=== PATIENT | female | born 1980 | race Hispanic/Latino ===

== ENCOUNTER 2019-10-07 09:33 | Inpatient (IN) | payer BC, SELFPAY ==
[2019-10-07] MEDS ORDERED: Lidocaine 2% MPF 10 ML AMP (For Epidural Use) ONE (09:34)
[2019-10-07] MEDS ORDERED: Bupivacaine 0.25% HCL 30 ML VIAL ONE (09:34)
[2019-10-07 10:33] VITALS: BMI 31.7
[2019-10-07] MEDS ORDERED: hydrALAZINE 20 MG/ML VIAL ONE (10:46)
[2019-10-07 11:06] LABS: Hemoglobin 13.3 g/dL (12.0-16.0); Mean Corpuscular HGB CONC 32.8 g/dL (32.0-36.0); Mean Corpuscular Hemoglobin 29.2 pg (27.0-31.0); Mean Corpuscular Volume 89.1 fL (78.0-98.0); Mean Platelet Volume 8.2 fL (7.4-10.4); Platelet Count 297 thou/uL (130-400); RBC Distribution Width 12.7 % (11.5-14.5); Red Blood Cell (RBC) Count 4.54 mill/uL (4.20-5.40); White Blood Cell (WBC) Count 9.2 thou/uL (4.8-10.8)
[2019-10-07 11:10] LABS: Hemoglobin A1c 6.8 % (4.0-6.0)
[2019-10-07 11:20] LABS: ALT (SGPT) 27 U/L (8-55); AST (SGOT) 21 U/L (5-34); Albumin 3.2 g/dL (3.5-5.0); Alkaline Phosphatase 179 U/L (40-110); Anion Gap 14 mmol/L (10-20); BUN (Urea Nitrogen) 15 mg/dL (7.0-18.7); Bilirubin, Total 0.2 mg/dL (0.2-1.2); Calc. Creatinine Clearance 125 mL/min (70-130); Calcium 10.2 mg/dL (7.8-10.44); Carbon Dioxide 19 mmol/L (22-29); Chloride 106 mmol/L (98-107); Estimated GFR-MDRD Greater than 90; Glucose 108 mg/dL (70-105); Potassium 4.3 mmol/L (3.5-5.1); Protein, Total 7.2 g/dL (6.0-8.3); Sodium 135 mmol/L (136-145)
[2019-10-07] MEDS ORDERED: FLU VACC QS2019-20(6MOS UP)/PF 60 MCG/0.5 ML SYRINGE IM ONE (11:30)
--- NOTE | 2019-10-07 11:40 | ULT ---
Limited Obstetrical Ultrasound INDICATION: Hypertension and diabetes TECHNIQUE: Grayscale, M-mode Doppler, color Doppler and spectral Doppler images were obtained. Humain dafne is focused on the clinical indication. COMPARISON: No relevant prior studies available. FINDINGS: GESTATION: Number of gestations: Single. Presentation: Cephalic. heart rate: 150 bpm. Placental location: Anterior MAEVE: 11.9 cm. Biophysical profile: tone: 2 out of 2. breathin out of 2 movements: 2 out of 2 Amniotic fluid level: 2 out of 2 Umbilical artery spectral Doppler imaging: There is persistent diastolic flow. The systolic diastolic ratio at the placenta was 1.89, at mid cord 2.84 and at the insertion 3.0. IMPRESSION: 1. Biophysical profile of 8 out of 8. 2. Umbilical artery spectral Doppler demonstrated persistent diastolic flow with systolic diastolic r atios between 50th and 95th percentile for gestational age. 3. MAEVE: 11.9 cm
[2019-10-07] MEDS: Betamet Acet/Betamet Na Ph 30 MG/5 ML VIAL ONE ×2 (11:57→11:58)
[2019-10-07] MEDS ORDERED: Lactated Ringer's 1,000 ML IV SCH (12:15)
[2019-10-07] MEDS ORDERED: HYDROcodone/Acetaminophen 5/325 mg Tablet PO PRN (13:42)
[2019-10-07] MEDS ORDERED: Carboprost 250 MCG/ML AMP IM PRN (13:42)
[2019-10-07] MEDS ORDERED: Misoprostol 200 MCG TAB PR PRN (13:42)
[2019-10-07] MEDS ORDERED: Ondansetron PF 4 MG/2 ML Vial IVP PRN (13:42)
[2019-10-07] MEDS ORDERED: Lidocaine 1% (PF) 30 ML VIAL SC PRN (13:42)
[2019-10-07] MEDS ORDERED: Diphenoxylate HCl/Atropine Tablet PO PRN (13:42)
[2019-10-07] MEDS ORDERED: Butorphanol Tartrate 1 MG/ML VIAL SLOW IVP PRN (13:42)
[2019-10-07] MEDS ORDERED: hydrALAZINE 20 MG/ML VIAL SLOW IVP PRN (13:42)
[2019-10-07] MEDS ORDERED: Promethazine HCl 25 MG/ML VIAL IM PRN (13:42)
[2019-10-07] MEDS ORDERED: NS w/ Oxytocin 10 units 500 ML IV SCH (13:45)
[2019-10-07] MEDS ORDERED: Labetalol HCl 100 MG/20 ML VIAL ONE (13:45)
[2019-10-07] MEDS: Lactated Ringer's 1,000 ML IV SCH (14:21)
[2019-10-07 15:06] LABS: Syphilis Antibody Nonreactive (Nonreactive); Syphilis Antibody Index 0.03 S/CO (<1.00 Non-Reactive)
[2019-10-07] MEDS: Misoprostol 100 MCG TAB PO SCH (15:22)
[2019-10-07 16:16] LABS: HBSAg Index 5244.85 S/CO (0-0.99)
[2019-10-07 16:17] LABS: Hep B Surf Ag Reflx Confirmation S/CO (NonReactive)
[2019-10-07] MEDS: hydrALAZINE 20 MG/ML VIAL SLOW IVP PRN (19:45)
[2019-10-08] MEDS: Misoprostol 100 MCG TAB PO SCH
[2019-10-08] MEDS ORDERED: HumaLOG 300 UNITS/3 ML VIAL SC SCH ×2 (00:15→19:30)
[2019-10-08] MEDS: Lactated Ringer's 1,000 ML IV SCH ×2 (06:13→09:37)
[2019-10-08] MEDS: hydrALAZINE 20 MG/ML VIAL SLOW IVP PRN ×2 (06:22→10:29)
[2019-10-08] MEDS ORDERED: Magnesium Sulfate 20 gm/500 ml 20 GM/500 ML BAG ONE (08:12)
[2019-10-08] MEDS ORDERED: Fentanyl 4 mcg/Bup 0.1% Cadd 100 ML ONE (08:12)
[2019-10-08] MEDS ORDERED: Calcium Gluc 4.6 MEQ/10 ML (100 MG/ML) SLOW IVP PRN (08:16)
[2019-10-08] MEDS ORDERED: Magnesium Sulfate 20 GM/WATER 500 ML BAG IVPB SCH (08:30)
[2019-10-08] MEDS: Magnesium Sulfate 20 gm/500 ml 20 GM/500 ML BAG IVPB SCH ×2 (09:01→18:52)
[2019-10-08] MEDS ORDERED: Ondansetron PF 4 MG/2 ML Vial IVP PRN ×2 (09:51→20:22)
[2019-10-08] MEDS ORDERED: diphenhydrAMINE 50 MG/ML VIAL IVP PRN (09:51)
[2019-10-08] MEDS ORDERED: Acetaminophen 325 MG TAB PO PRN (09:51)
[2019-10-08] MEDS ORDERED: Promethazine HCl 25 MG/ML VIAL IM PRN ×2 (09:51→20:22)
[2019-10-08] MEDS ORDERED: Lactated Ringer's 500 ML IV PRN (09:51)
[2019-10-08] MEDS ORDERED: EPHEDRINE 25 MG/5 ML SYRINGE SLOW IVP PRN (09:51)
[2019-10-08] MEDS ORDERED: Naloxone HCl 0.4 mg/ml Vial IVP PRN ×2 (09:51)
[2019-10-08] MEDS ORDERED: Communication Order-Pharmacy FS SCH (10:00)
[2019-10-08] MEDS ORDERED: Fentanyl 4 mcg/Bupivacaine 0.1% Cassette 100 ML EPIDURAL SCH (10:00)
[2019-10-08] MEDS: NS w/ Oxytocin 10 units 500 ML IV SCH (12:30)
[2019-10-08] MEDS ORDERED: Penicillin G Potassium 5 MILL.UNITS VIAL ONE (13:25)
[2019-10-08] MEDS: Betamet Acet/Betamet Na Ph 30 MG/5 ML VIAL IM SCH (13:34)
[2019-10-08] MEDS ORDERED: Lidocaine 1% (PF) 30 ML VIAL ONE (13:51)
[2019-10-08] MEDS ORDERED: Labetalol HCl 100 MG/20 ML VIAL ONE (14:09)
[2019-10-08] MEDS ORDERED: Labetalol HCl 100 MG/20 ML VIAL SLOW IVP PRN (14:11)
[2019-10-08] MEDS ORDERED: Labetalol HCl 100 MG/20 ML VIAL SLOW IVP SCH (14:15)
[2019-10-08 15:14] LABS: Hep B Surface AG-Rflx Sendout Confirm. indicated (Negative)
[2019-10-08] MEDS: NS / Oxytocin 40 units/1000ml 1,000 ML IV PRN ×2 (15:15→18:52)
[2019-10-08 15:24] LABS: Actual Bicarbonate (HCO3a) 18.7 mEq/L (22-28); Base Excess (BEa) -12.8 mEq/L (-2.0 to +3.0)
[2019-10-08 15:27] LABS: Actual Bicarbonate (HCO3v) 15 mEq/L (22-28)
[2019-10-08 15:29] LABS: pH (Cord, venous) 7.18 (7.32-7.43)
[2019-10-08] MEDS ORDERED: Fentanyl 100 MCG/2 ML VIAL ONE (15:43)
[2019-10-08] MEDS ORDERED: Midazolam HCl 2 mg/2 ml Vial ONE (15:43)
[2019-10-08] MEDS ORDERED: hydrALAZINE 20 MG/ML VIAL ONE (17:08)
[2019-10-08] MEDS ORDERED: Preparation H Ointment 28 GM TUBE PR PRN (20:22)
[2019-10-08] MEDS ORDERED: Lanolin Ointment 7 GM TUBE TOP PRN (20:22)
[2019-10-08] MEDS ORDERED: Bisacodyl 10 MG SUPP PR PRN (20:22)
[2019-10-08] MEDS ORDERED: Magnesium Sulfate 20 gm/500 ml 20 GM/500 ML BAG IVPB SCH (20:22)
[2019-10-08] MEDS ORDERED: hydrALAZINE 20 MG/ML VIAL SLOW IVP PRN (20:22)
[2019-10-08] MEDS ORDERED: NS / Oxytocin 40 units/1000ml 1,000 ML IV SCH (20:22)
[2019-10-08] MEDS ORDERED: Calcium Gluconate 4.6 MEQ in Sodium Chloride 0.9% 100 ML IVPB PRN (20:22)
[2019-10-08] MEDS ORDERED: diphenhydrAMINE 25 MG CAP PO PRN (20:22)
[2019-10-08] MEDS ORDERED: Adacel (T-DAP) 0.5 ML SYRINGE IM ONE (20:22)
[2019-10-08] MEDS ORDERED: Milk Of Magnesia 30 ML UDCUP PO PRN (20:22)
[2019-10-08] MEDS ORDERED: HYDROcodone/Acetaminophen 5/325 mg Tablet PO PRN (20:22)
[2019-10-08 21:43] LABS: Hemoglobin 10.4 g/dL (12.0-16.0); Mean Corpuscular HGB CONC 33.9 g/dL (32.0-36.0); Mean Corpuscular Hemoglobin 30.3 pg (27.0-31.0); Mean Corpuscular Volume 89.4 fL (78.0-98.0); Mean Platelet Volume 8.1 fL (7.4-10.4); Platelet Count 278 thou/uL (130-400); RBC Distribution Width 12.8 % (11.5-14.5); Red Blood Cell (RBC) Count 3.43 mill/uL (4.20-5.40); White Blood Cell (WBC) Count 26.8 thou/uL (4.8-10.8)
[2019-10-08] MEDS: HYDROcodone/Acetaminophen 5/325 mg Tablet PO PRN (22:31)
[2019-10-09] MEDS: Docusate Calcium (SURFAK) 240 MG CAP PO SCH ×3 (09:37→21:15)
[2019-10-09] MEDS: Ferrous Sulfate 325 MG TAB PO SCH ×2 (09:37→17:15)
[2019-10-09 09:44] LABS: Hemoglobin 8.9 g/dL (12.0-16.0); Mean Corpuscular HGB CONC 33.1 g/dL (32.0-36.0); Mean Corpuscular Hemoglobin 29.3 pg (27.0-31.0); Mean Corpuscular Volume 88.5 fL (78.0-98.0); Mean Platelet Volume 7.7 fL (7.4-10.4); Platelet Count 249 thou/uL (130-400); RBC Distribution Width 12.9 % (11.5-14.5); Red Blood Cell (RBC) Count 3.05 mill/uL (4.20-5.40); White Blood Cell (WBC) Count 23.8 thou/uL (4.8-10.8)
[2019-10-09] MEDS: Prenatal Vitamin 1 TAB PO SCH (10:57)
[2019-10-09] MEDS ORDERED: HumaLOG 300 UNITS/3 ML VIAL SC SCH (11:00)
[2019-10-09] MEDS: Acetaminophen 500 MG TAB PO PRN ×2 (11:45→23:01)
[2019-10-09] MEDS ORDERED: Lisinopril/Hydrochlorothiazide 20 mg/12.5 mg Tablet PO SCH (14:45)
[2019-10-09] MEDS ORDERED: Dextrose 50% Abboject 50 ML SYRINGE SLOW IVP PRN (15:17)
[2019-10-09] MEDS ORDERED: Dextrose 5% in Water 1,000 ML IV PRN (15:17)
[2019-10-09] MEDS: Betamet Acet/Betamet Na Ph 30 MG/5 ML VIAL IM SCH (17:56)
[2019-10-09] MEDS: Misoprostol 100 MCG TAB PO SCH ×3 (18:35→18:38)
[2019-10-09] MEDS: NS w/ Oxytocin 10 units 500 ML IV SCH (18:36)
[2019-10-09] MEDS: Lactated Ringer's 1,000 ML IV SCH (18:36)
[2019-10-09] MEDS: HumaLOG 300 UNITS/3 ML VIAL SC SCH (18:41)
[2019-10-09] MEDS: Insulin Glargine 15 UNITS in Pre-Filled Syringe 1 EACH SC SCH (21:12)
[2019-10-09] MEDS: Insulin Regular 300 UNITS/3 ML VIAL SC PRN (21:13)
[2019-10-09] MEDS ORDERED: Benzocaine-Menthol 82.5 ML CAN TOP PRN (22:13)
[2019-10-09] MEDS ORDERED: Witch Hazel-Glycerin 1 EACH JAR TOP PRN (22:14)
[2019-10-10] MEDS: Insulin Regular 300 UNITS/3 ML VIAL SC PRN ×2 (06:31→15:11)
[2019-10-10] MEDS: HumaLOG 300 UNITS/3 ML VIAL SC SCH ×3 (08:27→17:57)
[2019-10-10] MEDS: Lisinopril/Hydrochlorothiazide 20 mg/12.5 mg Tablet PO SCH (08:29)
[2019-10-10] MEDS: Ferrous Sulfate 325 MG TAB PO SCH ×2 (10:03→12:34)
[2019-10-10] MEDS: Prenatal Vitamin 1 TAB PO SCH (10:04)
[2019-10-10] MEDS: Docusate Calcium (SURFAK) 240 MG CAP PO SCH ×2 (10:04→21:15)
[2019-10-10] MEDS: Acetaminophen 500 MG TAB PO PRN (13:52)
[2019-10-10] MEDS: Insulin Glargine 15 UNITS in Pre-Filled Syringe 1 EACH SC SCH (21:16)
[2019-10-11] MEDS: Docusate Calcium (SURFAK) 240 MG CAP PO SCH (00:13)
[2019-10-11] MEDS: Acetaminophen 500 MG TAB PO PRN ×2 (00:13→09:27)
[2019-10-11] MEDS: Insulin Regular 300 UNITS/3 ML VIAL SC PRN ×2 (05:57→14:54)
[2019-10-11 08:36] VITALS: BP 149/80; TEMP 99.1
[2019-10-11] MEDS: HumaLOG 300 UNITS/3 ML VIAL SC SCH ×2 (08:54→12:59)
[2019-10-11] MEDS: Lisinopril/Hydrochlorothiazide 20 mg/12.5 mg Tablet PO SCH (08:54)
[2019-10-11] MEDS: Ferrous Sulfate 325 MG TAB PO SCH (08:54)
[2019-10-11] MEDS: Prenatal Vitamin 1 TAB PO SCH (08:55)
[2019-10-11] MEDS: HYDROcodone/Acetaminophen 5/325 mg Tablet PO PRN (16:11)
== END 2019-10-11 15:39 | disposition home or self-care (01) | DRG 805 ==
LOC: L&D/OP 09:33 → L&D 14:02 → L&D/OP 10-08 15:21 → L&D 10-08 15:22 → 3SE 10-09 17:02
PROVIDERS: ADMIT Family Medicine; ATTEND Family Medicine
PROC: 10E0XZZ Delivery of Products of Conception, External Approach (ICD-10-PCS; principal; 2019-10-08)
PROC: 0W8NXZZ Division of Female Perineum, External Approach (ICD-10-PCS; 2019-10-08)
DX: O10.92 Unspecified pre-existing hypertension complicating childbirth (principal); O24.12 Pre-existing type 2 diabetes mellitus, in childbirth; Z37.0 Single live birth; Z3A.36 36 weeks gestation of pregnancy; O76 Abnormality in fetal heart rate and rhythm complicating labor and delivery; O66.0 Obstructed labor due to shoulder dystocia; O69.81X0 Labor and delivery complicated by cord around neck, without compression, not applicable or unspecified; E11.8 Type 2 diabetes mellitus with unspecified complications; Z79.4 Long term (current) use of insulin; Z91.19 Patient's noncompliance with other medical treatment and regimen
CPT/HCPCS: 36415; 36416; 51702; 76819; 80053; 82570; 82805; 83036; 83735; 84156; 85027; 86780; 86850; 86900; 86901; 87340; 88307; 93975; 99285; J0360; J0702; J1815; J2001; J2250; J2540; J2590; J3010; J3475; S0020